=== PATIENT | male | born 1975 | race Caucasian/White ===

== ENCOUNTER 2025-09-04 08:24 | Emergency (ER) | payer SELFPAY ==
[2025-09-04 08:26] VITALS: BP 134/100
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
[2025-09-04] MEDS: XANAX 0.5 MG PO (12:26)
[2025-09-04 14:30] VITALS: BP 128/95
== END 2025-09-04 15:00 | disposition home or self-care (01) ==
LOC: EMR 08:24
PROVIDERS: EMERGENCY PHYSICIAN Emergency Medicine
DX: F41.9 Anxiety disorder, unspecified (principal); F32.A Depression, unspecified
CPT/HCPCS: 99283

== ENCOUNTER 2025-09-10 23:46 | Emergency (ER) | payer OTHER, SELFPAY ==
[2025-09-10 23:53] VITALS: BP 119/94
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
--- NOTE | 2025-09-11 11:35 | ED.CRISIS ---
ED Crisis Note
ED Crisis Note
Subjective:
calm
Objective:
requesting nicorret patch
Assessment/Plan:
to psych facility, [facility]
[2025-09-11] MEDS: NICODERM TRANSDERMAL 14 MG TRANSDERM (11:38)
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
== END 2025-09-11 12:53 ==
LOC: EMR 23:46
PROVIDERS: Student in an Organized Health Care Education/Training Program; CONSULT PHYSICIAN Psychiatry & Neurology Psychiatry; EMERGENCY PHYSICIAN Emergency Medicine
DX: F32.1 Major depressive disorder, single episode, moderate (principal); F43.10 Post-traumatic stress disorder, unspecified
CPT/HCPCS: 99285; 80306; 80307